=== PATIENT | male | born 1970 | race Two or more races ===

== ENCOUNTER 2025-03-09 11:19 | Inpatient (IN) | payer OTHER ==
[~2025-03-09] VITALS: Ht 190.5 cm; Wt 77.1 kg
[2025-03-09] MEDS ORDERED: AMLODIPINE-OLM1 EAC2 (12:09)
[2025-03-09] MEDS ORDERED: MILLIPRED5 MG (12:09)
[2025-03-09] MEDS ORDERED: AZITHROMYCIN250 MG PO (12:10)
[2025-03-09] MEDS ORDERED: TUSICOF LIQUID120 ML (12:10)
[2025-03-09] MEDS ORDERED: RIVAROXABAN 15 MG TABLET PO ONE (12:30)
[2025-03-09] MEDS ORDERED: 0.9 % SODIUM CHLORIDE 1,000 ML IV ONE (12:30)
[2025-03-09 13:26] LABS: ALT/SGPT 105.0 U/L (12-78); AST/SGOT 32.0 U/L (15-37); BILIRUBIN TOTAL 0.79 mg/dL (0.3-1.2); BUN CREA RATIO 18.0 (7.0-25.0); CREATININE SERUM 0.71 mg/dL (0.70-1.30); GFR 116.05; GLOBULINA 3.9 G/DL (2.4-3.5); GLUCOSE FASTING 110.0 mg/dL (65-100); OSMOLALITY SERUM 276.0 MOSM/KG (275-295)
[2025-03-09 13:32] LABS: BASO % 0.1 % (0.1-1.2); EOS # 0.01 (0.04-0.54); EOS % 0.1 % (0.7-7.0); LYMPH # 1.20 (1.18-3.74); LYMPH % 8.9 % (19.3-53.1); MEAN PLATELET VOLUME 8.90 fl (9.4-12.4); MONO # 0.69 (0.24-0.82); MONO % 5.1 % (4.7-12.5); NEUT # 11.45 (1.56-6.13); NEUT % 85.3 % (34.0-71.1); RED CELL DISTRIBUTION WIDTH 12.2 % (11.6-14.4)
[2025-03-09 13:39] LABS: INR 0.98
[2025-03-09 13:40] LABS: URINE APPEARANCE Clear; URINE BILIRRUBIN Negative (NEGATIVE); URINE BLOOD Negative; URINE COLOR Yellow; URINE GLUCOSE Negative (NEGATIVE); URINE KETONE Negative (NEGATIVE); URINE LEUKOCYTE Negative; URINE NITRATE Negative; URINE PROTEIN Negative (NEGATIVE); URINE UROBILINOGEN 0.2 E.U./dl
[2025-03-09 13:44] LABS: URINE RBC 4.5 uL (0.0-20.8)
[2025-03-09 13:50] LABS: ABG PH 7.441 (7.35-7.45); ABG PO2 77.3 mmHg (80-100); BICARBONATE 23.9 mmol/l (23-25)
[2025-03-09 13:51] LABS: URINE BACTERIA 0 uL (0.0-1933); URINE CAST 0.00 uL (0.0-1.40); URINE EPITHELIAL CELLS 0.7 uL (0.0-38.8); URINE WBC 0.4 uL (0.0-23.2)
[2025-03-09 13:53] LABS: D DIMER 2.15 MG/L
[2025-03-09 14:05] LABS: o2 21 %
[2025-03-09] MEDS ORDERED: METHYLPREDNISOLONE SOD SUCC 40 MG VIAL ONE (14:18)
[2025-03-09] MEDS ORDERED: DIPHENHYDRAMINE HCL 50 MG/ML VIAL 1ML ONE (14:18)
[2025-03-09] MEDS ORDERED: METHYLPREDNISOLONE SOD SUCC 40 MG VIAL IV ONE (14:30)
[2025-03-09] MEDS ORDERED: DIPHENHYDRAMINE HCL 50 MG/ML VIAL 1ML IV ONE (14:30)
[2025-03-09] MEDS ORDERED: XARELTO15 MG PO (15:20)
[2025-03-09] MEDS ORDERED: ENOXAPARIN SODIUM 80 MG/0.8 ML SYRINGE SUBCUTANEO SCH (18:49)
[2025-03-09] MEDS ORDERED: 0.9 % SODIUM CHLORIDE 1,000 ML IV SCH (19:00)
[2025-03-09] MEDS ORDERED: FAMOTIDINE/PF 20 MG in 0.9 % SODIUM CHLORIDE 8 ML IV PUSH SCH (19:25)
[2025-03-09] MEDS ORDERED: ONDANSETRON HCL 4 MG in 0.9 % SODIUM CHLORIDE 50 ML IV PRN (19:30)
[2025-03-09] MEDS ORDERED: ACETAMINOPHEN 500 MG GEL..CAP PO PRN (19:30)
[2025-03-09 21:20] VITALS: BP 115/82
[2025-03-09 21:46] VITALS: BP 115/73; O2SAT 96
[2025-03-09 23:48] VITALS: BP 113/72; O2SAT 96
[2025-03-10] VITALS (11 sets, daily range): BP systolic 103–128; BP diastolic 67–88; O2SAT 96–100
[2025-03-10] MEDS ORDERED: AMLODIPINE BESYLATE 5 MG TABLET PO SCH (09:00)
== END 2025-03-10 13:36 | disposition home or self-care (01) | DRG 299 ==
LOC: ER 11:48 → ICU-2 20:00
PROVIDERS: General Practice; ADMIT Internal Medicine; ATTEND Internal Medicine
PROC: BW25YZZ Computerized Tomography (CT Scan) of Chest, Abdomen and Pelvis using Other Contrast (ICD-10-PCS; principal; 2025-03-09)
PROC: B54DZZZ Ultrasonography of Bilateral Lower Extremity Veins (ICD-10-PCS; 2025-03-09)
PROC: B246ZZZ Ultrasonography of Right and Left Heart (ICD-10-PCS; 2025-03-09)
PROC: 4A033R1 Measurement of Arterial Saturation, Peripheral, Percutaneous Approach (ICD-10-PCS; 2025-03-09)
DX: I82.493 Acute embolism and thrombosis of other specified deep vein of lower extremity, bilateral (principal); I26.99 Other pulmonary embolism without acute cor pulmonale